=== PATIENT | male | born 1980 | race Caucasian/White ===

== ENCOUNTER 2017-05-22 21:08 | Emergency (ER) ==
[2017-05-22 21:09] VITALS: BMI 24.4
[2017-05-22 21:17] VITALS: TEMP 98.5
--- NOTE | 2017-05-22 21:39 | ED.PDOC ---
General ED Provider: Dr. DARY MARK Chief Complaint: Extremity Pain/Injury Stated Complaint: Patient has a rash which he thinks is scabies since he ws exposed to it. he has been itching. Also at work he s exposed to MRSA Time Seen by Physician: 21:36 Mode of Arrival: Walk-In Information Source: Patient Primary Care Provider: NELY LIRA Nursing and Triage Documentation Reviewed and Agree: Yes Review of Systems - Review Of Systems Constitutional: Reports: No symptoms Eyes: Reports: No symptoms Ears, Nose, Mouth, Throat: Reports: No symptoms Respiratory: Reports: No symptoms Cardiac: Reports: No symptoms GI: Reports: No symptoms : Reports: No symptoms Musculoskeletal: Reports: No symptoms Skin: Reports: Lesions, Rash Neurological: Reports: No symptoms Endocrine: Reports: No symptoms Hematologic/Lymphatic: Reports: No symptoms All Other Systems: Reviewed and Negative Past Medical History - Past Medical History Previously Healthy: Yes Endocrine: Reports: None Cardiovascular: Reports: None Respiratory: Reports: None Hematological: Reports: None Gastrointestinal: Reports: None Genitourinary: Reports: None Neuro/Psych: Reports: None Musculoskeletal: Reports: None Cancer: Reports: None - Surgical History General Surgical History: Reports: Unknown - Family History Family History: Reports: Unknown - Social History Smoking Status: Current some day smoker Hx Substance Use: No Alcohol Screening: Occasionally - Immunizations Tetanus Shot up to Date: Yes Physical Exam - Physical Exam Appearance: Well-appearing, No pain distress, Well-nourished Respiratory: Airway patent, Respirations nonlabored Musculoskeletal: Normal strength, ROM intact, No edema Skin: Warm, Dry, Normal color Neurological: Sensation intact, Motor intact, Alert, Oriented Psychiatric: Anxious Critical Care Note - Critical Care Note Total Time (mins): 0 Course - Course Vital Signs: Temp Pulse Resp BP Pulse Ox 05/22/17 21:47 151/94 H 05/22/17 21:09 98.5 F 57 L 16 147/101 H 97 Departure - Departure Time of Disposition: 21:36 Disposition: HOME SELF-CARE Discharge Problem: Dermatitis, Scabies exposure Instructions: Scabies (ED), Dermatitis (ED) Condition: Fair Pt referred to PMD for follow-up: Yes Additional Instructions: Take medications as prescribed Followup with PCP Prescriptions: Hydroxyzine HCl 10 mg PO TID PRN #20 tablet PRN Reason: Puritis Permethrin [Elimite] 60 gm TP ONCE #60 cream..g. Sulfamethoxazole/Trimethoprim [Bactrim Ds Tablet] 1 each PO BID #20 tablet Allergies/Adverse Reactions: Allergies No Known Allergies Allergy (Unverified 04/17/17 14:25) Home Medications: Ambulatory Orders Hydroxyzine HCl 10 mg PO TID PRN #20 tablet 05/22/17 Permethrin [Elimite] 60 gm TP ONCE #60 cream..g. 05/22/17 Sulfamethoxazole/Trimethoprim [Bactrim Ds Tablet] 1 each PO BID #20 tablet 05/22 Disposition Discussed With: Patient
[2017-05-22 21:48] VITALS: BP 151/94
== END 2017-05-22 21:40 | disposition home or self-care (01) ==
LOC: ED 21:08
DX: L30.9 Dermatitis, unspecified (principal); F17.210 Nicotine dependence, cigarettes, uncomplicated
CPT/HCPCS: 99282

== ENCOUNTER 2017-07-10 10:39 | Outpatient (CLI) | END 2017-07-10 10:40 | disposition home or self-care (01) | LOC: LAB 10:39 | PROVIDERS: ATTEND Family Medicine | DX: S00.96XA Insect bite (nonvenomous) of unspecified part of head, initial encounter (principal) | CPT/HCPCS: 36415; 86617 ==

== ENCOUNTER 2017-08-06 09:01 | Emergency (ER) ==
[2017-08-06 09:11] VITALS: BP 144/97; TEMP 98.4; BMI 24.6
[2017-08-06] MEDS ORDERED: DOXYCYCLINE HYCLATE PO STA (09:14)
--- NOTE | 2017-08-06 09:17 | ED.PDOC ---
General ED Provider: Dr. MOISES DENNEY-ER Chief Complaint: Abscess Stated Complaint: i have some abscesses in my armpit Time Seen by Physician: 09:15 Mode of Arrival: Walk-In Information Source: Patient Exam Limitations: No limitations Primary Care Provider: NELY LIRA Nursing and Triage Documentation Reviewed and Agree: Yes Reviewed sepsis parameters & appropriate labs ordered?: Yes System Inflammatory Response Syndrome: Not Applicable Sepsis Protocol: For patient's 13 years and over: Temp is 96.8 and below OR 101 and greater Pulse >90 BPM Resp >20/minute Acutely Altered Mental Status Are patient's symptoms suggestive of a new infection, such as: -Pneumonia -Skin, Soft Tissue -Endocarditis -UTI -Bone, Joint Infection -Implantable Device -Acute Abdominal Infection -Wound Infection -Meningitis -Blood Stream Catheter Infection -Unknown Skin Complaint Exam - Skin/Soft Tissue Complaint/Exam Onset/Duration: 2 days Symptoms Are: Still present Initial Severity: Mild Current Severity: Mild Location: left axilla Character: Reports: Swelling, Raised, Painful Aggravating: Reports: None Alleviating: Reports: None Associated Signs and Symptoms: Reports: Drainage, Tenderness 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 Surgical History: Reports: None Recent Exposure to Others w/Similar Symptoms: No Skin Findings: Present: Induration, Pustules Joint Tenderness Present: No Differential Diagnoses: Infection Review of Systems - Review Of Systems Constitutional: Reports: No symptoms Eyes: Reports: No symptoms Ears, Nose, Mouth, Throat: Reports: No symptoms Respiratory: Reports: No symptoms Cardiac: Reports: No symptoms GI: Reports: No symptoms : Reports: No symptoms Musculoskeletal: Reports: No symptoms Skin: Reports: Lesions, Lumps Neurological: Reports: No symptoms Endocrine: Reports: No symptoms Hematologic/Lymphatic: Reports: No symptoms All Other Systems: Reviewed and Negative Past Medical History - Past Medical History Previously Healthy: Yes Endocrine: Reports: None Cardiovascular: Reports: None Respiratory: Reports: None Hematological: Reports: None Gastrointestinal: Reports: None Genitourinary: Reports: None Neuro/Psych: Reports: None Musculoskeletal: Reports: None Cancer: Reports: None - Surgical History General Surgical History: Reports: Unknown - Family History Family History: Reports: Unknown - Social History Smoking Status: Current some day smoker Hx Substance Use: No Alcohol Screening: Occasionally Physical Exam - Physical Exam Appearance: Well-appearing, No pain distress, Well-nourished Pain Distress: Mild Eyes: VANESA, EOMI, Conjunctiva clear ENT: Ears normal, Nose normal, Oropharynx normal Neck: Supple Respiratory: Airway patent Cardiovascular: RRR GI/: Soft, Nontender, No masses, Bowel sounds normal, No Organomegaly Musculoskeletal: Normal strength Skin: Warm Neurological: Sensation intact Psychiatric: Affect appropriate, Mood appropriate Critical Care Note - Critical Care Note Total Time (mins): 0 Course - Course Orders, Labs, Meds: Orders Category Date Time Status WOUND CULTURE Stat LAB 08/06/17 09:14 Uncollected Doxycycline Hyclate MEDS 08/06/17 09:14 Stat 100 mg PO NOW STA Medications Generic Name Dose Route Start Last Admin Trade Name Freq PRN Reason Stop Dose Admin Doxycycline Hyclate 100 mg 08/06/17 09:14 Doxycycline Hyclate PO 08/06/17 09:15 NOW STA Vital Signs: Temp Pulse Resp BP Pulse Ox 08/06/17 09:02 98.4 F 100 H 16 144/97 H 99 Departure - Departure Time of Disposition: : Disposition: HOME SELF-CARE Discharge Problem: Abscess Instructions: Abscess (ED) Condition: Good Pt referred to PMD for follow-up: Yes Additional Instructions: doxycycline 100mg q 12hrs #20k---wash with soap and water bid --off work next 3 days=--f/u with pcp Allergies/Adverse Reactions: Allergies No Known Allergies Allergy (Verified 08/06/17 09:07) Home Medications: Ambulatory Orders Dextroamphetamine/Amphetamine [Adderall 10 mg Tablet] 5 mg PO DIRECTED PRN Dextroamphetamine/Amphetamine [Adderall 20 mg Tablet] 20 mg PO BID 08/06/17 Disposition Discussed With: Patient
== END 2017-08-06 09:20 | disposition home or self-care (01) ==
LOC: ED 09:01
DX: L02.412 Cutaneous abscess of left axilla (principal); F17.210 Nicotine dependence, cigarettes, uncomplicated
CPT/HCPCS: 87070; 87186; 99283

== ENCOUNTER 2018-02-10 10:28 | Emergency (ER) ==
[2018-02-10 10:38] VITALS: BP 156/79; TEMP 99.1; BMI 25.4
[2018-02-10] MEDS ORDERED: LIDOCAINE HCL 1% SDV SUBCUT STA (10:39)
--- NOTE | 2018-02-10 10:59 | ED.PDOC ---
General ED Provider: Dr. MOISES DENNEY-ER Chief Complaint: Hand Laceration Stated Complaint: a drill bit went through my hand and caused a cut Time Seen by Physician: 10:30 Mode of Arrival: Walk-In Information Source: Patient Exam Limitations: No limitations Primary Care Provider: NELY LIRA Nursing and Triage Documentation Reviewed and Agree: Yes Does patient meet sepsis criteria?: No System Inflammatory Response Syndrome: Not Applicable Sepsis Protocol: For patient's 13 years and over: Temp is 96.8 and below OR 101 and greater Pulse >90 BPM Resp >20/minute Acutely Altered Mental Status Are patient's symptoms suggestive of a new infection, such as: -Pneumonia -Skin, Soft Tissue -Endocarditis -UTI -Bone, Joint Infection -Implantable Device -Acute Abdominal Infection -Wound Infection -Meningitis -Blood Stream Catheter Infection -Unknown Skin Complaint Exam - Laceration/Abrasion/Hand Complaint/Exam Location of Injury: Left, Hand Mechanism of Injury: Laceration, Puncture Onset/Duration: 1 hr Symptoms Are: Still present Initial Severity: Mild Alleviating: Compression Associated Signs and Symptoms: Denies: Fever, Chills, Erythema, Numbness, Tingling Differential Diagnoses: Puncture Wound Review of Systems - Review Of Systems Constitutional: Reports: No symptoms Eyes: Reports: No symptoms Ears, Nose, Mouth, Throat: Reports: No symptoms Respiratory: Reports: No symptoms Cardiac: Reports: No symptoms GI: Reports: No symptoms : Reports: No symptoms Musculoskeletal: Reports: No symptoms Skin: Reports: Other Neurological: Reports: No symptoms Endocrine: Reports: No symptoms Hematologic/Lymphatic: Reports: No symptoms All Other Systems: Reviewed and Negative Past Medical History - Past Medical History Previously Healthy: Yes Endocrine: Reports: None Cardiovascular: Reports: None Respiratory: Reports: None Hematological: Reports: None Gastrointestinal: Reports: None Genitourinary: Reports: None Neuro/Psych: Reports: None Musculoskeletal: Reports: None Cancer: Reports: None - Surgical History General Surgical History: Reports: Unknown - Family History Family History: Reports: Unknown - Social History Smoking Status: Current every day smoker Hx Substance Use: No Alcohol Screening: Occasionally - Immunizations Tetanus Shot up to Date: Yes Physical Exam - Physical Exam Appearance: Well-appearing, No pain distress, Well-nourished Pain Distress: Mild Eyes: VANESA ENT: Ears normal Neck: Supple Respiratory: Airway patent, Breath sounds clear, Breath sounds equal, Respirations nonlabored Cardiovascular: RRR, Pulses normal, No rub, No murmur GI/: Soft, Nontender, No masses, Bowel sounds normal, No Organomegaly Musculoskeletal: Normal strength, ROM intact, No edema, No calf tenderness Skin: Warm, Dry, Normal color Neurological: Sensation intact, Motor intact, Reflexes intact, Cranial nerves intact, Alert, Oriented Psychiatric: Affect appropriate, Mood appropriate Interpretation - Radiology Interpretation Radiology Interpretation By: ED Physician Radiology Results: Negative Procedures - Laceration/Wound Repair No standard instances Wound Description: Linear Wound Length (cm): 1.5cm left palm Wound Explored: Clean Wound Irrigated: Yes Wound Prep: Betadine Anesthesia: Lidocaine Wound Repaired With: Sutures Suture Size and Type: 4.0 prolene Number of Sutures: 3 Layer Closure?: No Sterile Dressing Applied?: Yes Splint Applied?: No Sling Applied?: No Critical Care Note - Critical Care Note Total Time (mins): 0 Course - Course Orders, Labs, Meds: Orders Category Date Time Status Lidocaine HCl/Pf [Lidocaine HCl 1% Sdv] MEDS 02/10/18 10:39 Discontinued 5 ml SUBCUT ONCE STA HAND, LEFT 3 VIEWS Stat RADS 02/10/18 10:56 Taken Medications Discontinued Medications Generic Name Dose Route Start Last Admin Trade Name Freq PRN Reason Stop Dose Admin Lidocaine HCl 5 ml 02/10/18 10:39 Lidocaine Hcl 1% Sdv SUBCUT 02/10/18 10:40 ONCE STA Vital Signs: Temp Pulse Resp BP Pulse Ox 02/10/18 10:29 99.1 F 107 H 20 156/79 H 96 Departure - Departure Time of Disposition: 11:11 Disposition: HOME SELF-CARE Discharge Problem: Laceration of hand Instructions: Laceration (ED), Care For Your Stitches (ED) Condition: Good Pt referred to PMD for follow-up: Yes IPMP verified?: No Additional Instructions: routine suture care---sutures out in 7 days--return if any signs of infection Allergies/Adverse Reactions: Allergies No Known Allergies Allergy (Verified 02/10/18 10:38) Home Medications: Ambulatory Orders Dextroamphetamine/Amphetamine [Adderall 10 mg Tablet] 5 mg PO DIRECTED PRN Dextroamphetamine/Amphetamine [Adderall 20 mg Tablet] 20 mg PO BID 08/06/17 Disposition Discussed With: Patient
--- NOTE | 2018-02-10 11:28 | DI ---
EXAM: Three views of the left hand. History: Left hand trauma. Findings: No acute fracture or dislocation. No abnormal calcifications or radiopaque foreign bodies . Joint spaces are preserved. Impression: No acute osseous abnormality
== END 2018-02-10 11:50 | disposition home or self-care (01) ==
LOC: ED 10:28
DX: S61.412A Laceration without foreign body of left hand, initial encounter (principal); W29.8XXA Contact with other powered hand tools and household machinery, initial encounter; F17.210 Nicotine dependence, cigarettes, uncomplicated
CPT/HCPCS: 99283